=== PATIENT | female | born 1990 | race Caucasian/White ===

== ENCOUNTER → 2016-11-18 | Outpatient (CLI) | payer OTHER ==
--- NOTE | 2016-11-18 15:43 | US ---
EXAMINATION TYPE: US thyroid st tissue head/neck DATE OF EXAM: 11/18/2016 3:23 PM COMPARISON: IN PACS CLINICAL HISTORY: E04.1 thyroid nodule. F/U previous GLAND SIZE: Right Lobe: 4.5 x 1.4 x 1.9 cm Overall Parenchyma: homogenous Left Lobe: 4.4 x 1.0 x 1.4 cm Overall Parenchyma: homogeneous Isthmus Thickness: 0.2 cm NODULES RIGHT: # of nodules measured on right: 1 1. 0.9 X 0.8 x 1.1 cm hypoechoic solid nodule at the mid pole with irregular margins; present with microcalcifications. This nodule is wider than tall and shows intranodular vascularity. Prior size: 0.7 x 0.6 x 0.5 cm 0 LEFT: # of nodules measured on left: 0 ISTHMUS: # of nodules measured in the isthmus: 0 TECHNOLOGIST IMPRESSION: Bilateral neck scanned, no abnormal lymphadenopathy noted/ Irregular nodule right lobe increased in size from previous IMPRESSION: 1. Enlargement of a thyroid nodule within the right lobe thyroid.
== END ==
LOC: RADUSWWP 15:13
PROVIDERS: ATTEND Family Medicine
DX: E04.1 Nontoxic single thyroid nodule (principal)
CPT/HCPCS: 76536

== ENCOUNTER 2016-12-01 12:28 | Day surgery (SDC) | payer OTHER ==
[2016-12-01 12:52] VITALS: RESP 14; TEMP 98.3
[2016-12-01 13:47] VITALS: BP 141/78; PULSE 73
--- NOTE | 2016-12-01 14:09 | US ---
ULTRASOUND GUIDED FNA THYROID BIOPSY: CLINICAL HISTORY: 1.1 cm right thyroid nodule FINDINGS: The procedure was explained to the patient. The risks, complications, benefits and alternatives were discussed and any questions were answered. Informed consent was obtained. Patient was placed supin e on the ultrasound table and prepped and draped in the usual sterile fashion. Utilizing a 25 gauge needle, five passes were made into the requested right thyroid nodule. Patient was stable throughout the procedure. Pathology is pending. All elements of maximal barrier technique were utilized. IMPRESSION: 1. Successful ultrasound guided FNA thyroid biopsy.
== END 2016-12-01 13:47 | disposition home or self-care (01) ==
LOC: RADPROMAIN 12:28
PROVIDERS: ATTEND Family Medicine
DX: E04.1 Nontoxic single thyroid nodule (principal)
CPT/HCPCS: 10022; 76942; 88173; 88305

== ENCOUNTER 2018-02-17 21:49 | Emergency (ER) | payer OTHER ==
[2018-02-17 22:05] VITALS: TEMP 98.9
[2018-02-17] MEDS ORDERED: SODIUM CHLORIDE 0.9% 1,000 ML IV STA (22:26)
[2018-02-17] MEDS ORDERED: METOCLOPRAMIDE 5 MG/ML 2 ML VIAL IVP STA (22:27)
[2018-02-17] MEDS ORDERED: diphenhydrAMINE 50 MG/ML 1 ML VIAL IVP STA (22:27)
--- NOTE | 2018-02-17 22:41 | ED ---
General Adult HPI - General Chief complaint: Fever Stated complaint: Fever/Headache /Neck pain Time Seen by Provider: 02/17/18 22:07 Source: patient Mode of arrival: ambulatory Limitations: no limitations - History of Present Illness Initial comments: Karla is a 27-year-old female with past medical history of chronic headaches who presents to the emergency department today for evaluation of headache and low-grade fever. The patient reports that last week she developed a sore throat and a cough as well as a fever. She states that she did have some vomiting last week. She states that she attempted to take her home Fioricet with no relief of her headache. She saw her primary care physician was evaluated for strep which was negative as well as mono which was negative. She states that on Wednesday she had a fever of 101F. She saw her primary care on Wednesday and he advised her to continue supportive care but that if she had any worsening headache or persistent fevers to be evaluated in the emergency department for possible meningitis. The patient reports that for the remainder of the week she has had temperatures in the 99 range, nothing over 100.3F Patient does complain of some nasal congestion, pressure in her sinuses as well as a persistent nonproductive cough and sore throat. She states that she has been told she has seasonal ALLERGIES in the past but is uncertain what triggers her ALLERGIES. Patient describes her headache as an all over pressure-like headache. She states that it's worse when she bends over to tie her shoes. - Related Data Home Medications Medication Instructions Recorded Confirmed Butalb/Asprin/Caff 50-325-40Mg 1 cap PO TID PRN 02/17/18 02/17/18 [Fiorinal 50-325-40 MG] Ergocalciferol [Vitamin D2] 50,000 unit PO TH 02/17/18 02/17/18 Levothyroxine Sodium [Synthroid] 175 mcg PO DAILY 02/17/18 02/17/18 Previous Rx's Medication Instructions Recorded Fluticasone Nasal [place] [Flonase 2 spr EA NOSTRIL DAILY #1 bottle 02/18/18 Nasal [place]] Loratadine [Claritin] 10 mg PO DAILY #30 tab 02/18/18 Allergies Allergy/AdvReac Type Severity Reaction Status Date / Time codeine Allergy Unknown Verified 02/17/18 22:13 Childhood hydromorphone [From Dilaudid] AdvReac Nausea & Verified 02/17/18 22:13 Vomiting Review of Systems ROS Statement: Those systems with pertinent positive or pertinent negative responses have been documented in the HPI. ROS Other: All systems not noted in ROS Statement are negative. Constitutional: Reports: fever Eyes: Denies: vision change ENT: Reports: ear pain, throat pain Respiratory: Reports: cough. Denies: dyspnea, wheezes Cardiovascular: Denies: chest pain, palpitations, dyspnea on exertion, orthopnea Endocrine: Reports: fatigue Gastrointestinal: Denies: abdominal pain Genitourinary: Denies: urgency, dysuria Musculoskeletal: Denies: back pain Skin: Denies: rash Neurological: Reports: headache. Denies: weakness, numbness, paresthesias, confusion Psychiatric: Denies: anxiety, depression Hematological/Lymphatic: Denies: easy bleeding, easy bruising Past Medical History Past Medical History: Thyroid Disorder Additional Past Medical History / Comment(s): thyroid ca History of Any Multi-Drug Resistant Organisms: None Reported Past Surgical History: Section Additional Past Surgical History / Comment(s): thyroidectomy Past Anesthesia/Blood Transfusion Reactions: No Reported Reaction Past Psychological History: No Psychological Hx Reported Smoking Status: Never smoker Past Alcohol Use History: None Reported Past Drug Use History: None Reported - Past Family History Father Family Medical History: Hypertension, Myocardial Infarction ([place]) General Exam Limitations: no limitations General appearance: alert, in no apparent distress Head exam: Present: atraumatic, normocephalic Eye exam: Present: normal appearance, PERRL, EOMI ENT exam: Present: normal exam, normal oropharynx, mucous membranes moist, TM's normal bilaterally (fluid behind TM bilaterally), other (Tenderness to palpation of bilateral frontal and maxillary sinuses, noted to have significant postnasal drip) Neck exam: Present: other (well healing surgical scar consistent with history of thyroidectomy). Absent: meningismus, lymphadenopathy Respiratory exam: Present: normal lung sounds bilaterally, respiratory distress Cardiovascular Exam: Present: regular rate, normal rhythm GI/Abdominal exam: Present: soft. Absent: distended Rectal exam: Present: deferred Extremities exam: Present: normal inspection, full ROM Back exam: Present: normal inspection Neurological exam: Present: alert, oriented X3, CN II-XII intact, normal gait. Absent: altered Skin exam: Present: warm, dry. Absent: rash Course Vital Signs 02/17/18 02/18/18 21:58 00:46 Temperature 98.9 F Pulse Rate 78 101 H Respiratory 18 16 Rate Blood Pressure 151/93 128/84 O2 Sat by Pulse 98 99 Oximetry Medical Decision Making - Medical Decision Making The patient was seen and evaluated, history was obtained from the patient. Patient had apparent illness last week with fevers, sore throat, vomiting. Last fever was on Wednesday, was 101 Fahrenheit Patient was evaluated by her primary care physician, was strep and mono negative , was advised to seek care in the ER for any persistent symptoms. Patient reports that she feels better throughout the day but has worsening headaches at night as well as low-grade fevers which she describes as being 99F. Physical exam reveals no meningismus, patient is able to turn the head easily without apparent pain. She does report worsening pressure and pain in her head when she bends down to touch her toes. She does have physical exam findings consistent with acute sinusitis. Patient is cheerful and laughing with the examiner. I discussed with the patient for CT and lumbar puncture versus conservative management with treatment of her headache and reevaluation. At this time patient is agreeable to plan for conservative management. Patient re-evaluated, patient has friends at bedside, she is sitting up in bed talking and socializing. She reports improvement in her headache, still feels mild pressure-like sensation in her forehead and face region. I again reiterated I suspect she has some degree of sinusitis. Absent reveal mild leukocytosis with a white blood cell count of 11.4, no neutrophilia or bandemia. These results were discussed with the patient. I discussed with the patient further workup for headache. I advised the patient that a thorough workup of the headache will include a lumbar puncture. However considering the duration of her headache, the minimum symptoms at present, she has been afebrile for 4 days and is feeling well at this time therefore the patient would like to decline a lumbar puncture or head CT. Patient is comfortable with the plan for discharge home. She does have a good relationship with her primary care physician and can have close follow-up. I advised the patient that should she develop any fevers, worsening headache or any new or concerning symptoms she should return to the emergency department immediately for reevaluation. All questions pertaining to care were answered to the best my ability the patient was discharged home in stable condition with prescriptions for Claritin and Flonase for treatment of acute sinusitis. - Lab Data Result diagrams: 02/17/18 22:59 02/17/18 22:59 Lab Results 02/17/18 02/17/18 02/17/18 Range/Units 22:59 22:59 22:59 WBC 11.4 H (3.8-10.6) k/uL RBC 4.75 (3.80-5.40) m/uL Hgb 13.0 (11.4-16.0) gm/dL Hct 39.2 (34.0-46.0) % MCV 82.5 (80.0-100.0) fL MCH 27.4 (25.0-35.0) pg MCHC 33.2 (31.0-37.0) g/dL RDW 13.7 (11.5-15.5) % Plt Count 373 (150-450) k/uL Neutrophils % 65 % Lymphocytes % 26 % Monocytes % 5 % Eosinophils % 2 % Basophils % 0 % Neutrophils # 7.5 (1.3-7.7) k/uL Lymphocytes # 3.0 (1.0-4.8) k/uL Monocytes # 0.5 (0-1.0) k/uL Eosinophils # 0.2 (0-0.7) k/uL Basophils # 0.0 (0-0.2) k/uL Sodium 143 (137-145) mmol/L Potassium 4.2 (3.5-5.1) mmol/L Chloride 103 (98-107) mmol/L Carbon Dioxide 24 (22-30) mmol/L Anion Gap 16 mmol/L BUN 10 (7-17) mg/dL Creatinine 0.60 (0.52-1.04) mg/dL Est GFR (CKD-EPI)AfAm >90 (>60 ml/min/1.73 sqM) Est GFR (CKD-EPI)NonAf >90 (>60 ml/min/1.73 sqM) Glucose 116 H (74-99) mg/dL Calcium 9.8 (8.4-10.2) mg/dL Total Bilirubin 0.5 (0.2-1.3) mg/dL AST 26 (14-36) U/L ALT 20 (9-52) U/L Alkaline Phosphatase 77 (38-126) U/L Total Protein 7.4 (6.3-8.2) g/dL Albumin 4.1 (3.5-5.0) g/dL Urine Color Urine Appearance (Clear) Urine pH (5.0-8.0) Ur Specific [place] (1.001-1.035) Urine Protein (Negative) Urine Glucose (UA) (Negative) Urine Ketones (Negative) Urine Blood (Negative) Urine Nitrite (Negative) Urine Bilirubin (Negative) Urine Urobilinogen (<2.0) mg/dL Ur Leukocyte Esterase (Negative) Urine RBC (0-5) /hpf Urine WBC (0-5) /hpf Ur Squamous Epith Cells (0-4) /hpf Urine Mucus (None) /hpf Urine HCG, Qual Not Detected (Not Detectd) 02/17/18 Range/Units 22:59 WBC (3.8-10.6) k/uL RBC (3.80-5.40) m/uL Hgb (11.4-16.0) gm/dL Hct (34.0-46.0) % MCV (80.0-100.0) fL MCH (25.0-35.0) pg MCHC (31.0-37.0) g/dL RDW (11.5-15.5) % Plt Count (150-450) k/uL Neutrophils % % Lymphocytes % % Monocytes % % Eosinophils % % Basophils % % Neutrophils # (1.3-7.7) k/uL Lymphocytes # (1.0-4.8) k/uL Monocytes # (0-1.0) k/uL Eosinophils # (0-0.7) k/uL Basophils # (0-0.2) k/uL Sodium (137-145) mmol/L Potassium (3.5-5.1) mmol/L Chloride (98-107) mmol/L Carbon Dioxide (22-30) mmol/L Anion Gap mmol/L BUN (7-17) mg/dL Creatinine (0.52-1.04) mg/dL Est GFR (CKD-EPI)AfAm (>60 ml/min/1.73 sqM) Est GFR (CKD-EPI)NonAf (>60 ml/min/1.73 sqM) Glucose (74-99) mg/dL Calcium (8.4-10.2) mg/dL Total Bilirubin (0.2-1.3) mg/dL AST (14-36) U/L ALT (9-52) U/L Alkaline Phosphatase (38-126) U/L Total Protein (6.3-8.2) g/dL Albumin (3.5-5.0) g/dL Urine Color Yellow Urine Appearance Cloudy H (Clear) Urine pH 5.5 (5.0-8.0) Ur Specific [place] 1.020 (1.001-1.035) Urine Protein Negative (Negative) Urine Glucose (UA) Negative (Negative) Urine Ketones Negative (Negative) Urine Blood Trace H (Negative) Urine Nitrite Negative (Negative) Urine Bilirubin Negative (Negative) Urine Urobilinogen <2.0 (<2.0) mg/dL Ur Leukocyte Esterase Small H (Negative) Urine RBC 1 (0-5) /hpf Urine WBC 3 (0-5) /hpf Ur Squamous Epith Cells 8 H (0-4) /hpf Urine Mucus Rare H (None) /hpf Urine HCG, Qual (Not Detectd) Disposition Clinical Impression: Viral infection Disposition: HOME SELF-CARE Condition: Good Instructions: Sinusitis (ED) Prescriptions: Fluticasone Nasal [place] [Flonase Nasal [place]] 2 spr EA NOSTRIL DAILY #1 bottle Loratadine [Claritin] 10 mg PO DAILY #30 tab Is patient prescribed a controlled substance at d/c from ED?: No Referrals: Ramiro Bradley DO [Primary Care Provider] - 1-2 days Time of Disposition: 00:29
[2018-02-17 23:11] LABS: Basophils % (A) 0 %; Eosinophils # (A) 0.2 k/uL (0-0.7); Eosinophils % (A) 2 %; HCT 39.2 % (34.0-46.0); Lymphocytes % (A) 26 %; MCH 27.4 pg (25.0-35.0); MCHC 33.2 g/dL (31.0-37.0); MCV 82.5 fL (80.0-100.0); Mean Platelet Volume 6.9; Monocytes # (A) 0.5 k/uL (0-1.0); Monocytes % (A) 5 %; Neutrophils # (A) 7.5 k/uL (1.3-7.7); Neutrophils % (A) 65 %; Platelet Count 373 k/uL (150-450); RBC 4.75 m/uL (3.80-5.40); RDW 13.7 % (11.5-15.5); WBC 11.4 k/uL (3.8-10.6)
[2018-02-17 23:13] LABS: Appearance,Urine Cloudy (Clear); Bilirubin,Urine Negative (Negative); Blood,Urine Trace (Negative); Color,Urine Yellow; Glucose,Urine (UA) Negative (Negative); Ketones,Urine Negative (Negative); Leukocyte Esterase,Urine Small (Negative); Mucus,Urine Rare /hpf; Nitrite,Urine Negative (Negative); PH, Urine 5.5 (5.0-8.0); Protein,Urine Negative (Negative); RBC,Urine 1 /hpf (0-5); Squamous Epithelial Cell,Urine 8 /hpf (0-4); Urobilinogen,Urine <2.0 mg/dL (<2.0); WBC,Urine 3 /hpf (0-5)
[2018-02-17 23:57] LABS: ALT 20 U/L (9-52); AST 26 U/L (14-36); Albumin 4.1 g/dL (3.5-5.0); Alkaline Phosphatase 77 U/L (38-126); Anion Gap 16 mmol/L; Blood Urea Nitrogen 10 mg/dL (7-17); Calcium 9.8 mg/dL (8.4-10.2); Carbon Dioxide 24 mmol/L (22-30); Chloride 103 mmol/L (98-107); Glucose 116 mg/dL (74-99); Potassium 4.2 mmol/L (3.5-5.1); Sodium 143 mmol/L (137-145); Total Bilirubin 0.5 mg/dL (0.2-1.3); Total Protein 7.4 g/dL (6.3-8.2)
[2018-02-18 00:53] VITALS: BP 128/84; PULSE 101; RESP 16
== END 2018-02-18 00:52 | disposition home or self-care (01) ==
LOC: EC 21:49
DX: B34.9 Viral infection, unspecified (principal); E07.9 Disorder of thyroid, unspecified; Z85.850 Personal history of malignant neoplasm of thyroid; Z79.899 Other long term (current) drug therapy; Z88.5 Allergy status to narcotic agent; Z98.890 Other specified postprocedural states
CPT/HCPCS: 36415; 80053; 85025; 81001; 81025; 99283; 96374; 96375; J1200; J2765

== ENCOUNTER → 2024-03-31 | Outpatient (CLI) | payer OTHER ==
--- NOTE | 2024-03-31 18:53 | CT ---
EXAMINATION TYPE: CT abdomen pelvis w con CT DLP: 1881.7 mGycm, Automated exposure control for dose reduction was used. DATE OF EXAM: 03/31/2024 6:44 PM COMPARISON: 06/25/2023 CLINICAL INDICATION:Female, 33 years old with history of R10.2 ACUTE ABDOMEN R10.30 LOWER ABDOMINAL P AIN, U; low abd pain/ ovarian cyst TECHNIQUE: Axial CT abdomen pelvis w con;Sagittal and coronal reformats were created on a separate w orkstation. Contrast used:100 mL of Isovue 300 with IV Contrast, (none if empty) Oral contrast used: with Oral Contrast (none if empty) FINDINGS: LOWER CHEST: Unremarkable ABDOMEN LIVER: Unremarkable GALLBLADDER AND BILE DUCTS: Unremarkable. PANCREAS: Unremarkable. SPLEEN: Unremarkable. ADRENAL GLANDS: Unremarkable. KIDNEYS AND URETERS: No evidence of hydronephrosis or renal calculus. The ureters are unremarkable. PELVIS BLADDER: Unremarkable REPRODUCTIVE: No ovarian cysts identified. Dominant follicles in the right measuring up to 14 mm. ABDOMEN & PELVIS STOMACH AND BOWEL: No evidence of bowel obstruction. PERITONEUM/RETROPERITONEUM: No evidence of pneumoperitoneum or free fluid. VASCULATURE: No evidence of aortic aneurysm. MUSCULOSKELETAL: No acute osseous abnormalities LYMPH NODES: No gross evidence for lymphadenopathy. SOFT TISSUE/ABDOMINAL WALL: Tiny fat-containing umbilical hernia. IMPRESSION: 1. Dominant right ovarian follicle measuring 14 mm. 2. No acute abdominal process.
== END | disposition home or self-care (01) ==
LOC: RADCTMAIN 16:05 → MERGE 17:30
PROVIDERS: ATTEND Family Medicine
DX: R10.2 Pelvic and perineal pain (principal); R10.30 Lower abdominal pain, unspecified
CPT/HCPCS: 74177; Q9967

== ENCOUNTER 2024-06-06 07:54 | Emergency (ER) | payer OTHER ==
[2024-06-06 07:58] VITALS: RESP 16
--- NOTE | 2024-06-06 08:09 | ED ---
Nausea/Vomiting/Diarrhea HPI - General Chief complaint: Nausea/Vomiting/Diarrhea Stated complaint: NV,8wks preg Time Seen by Provider: 06/06/24 08:08 Source: patient, RN notes reviewed Mode of arrival: ambulatory Limitations: no limitations - History of Present Illness Initial comments: 33-year-old female presenting to the ER with a chief complaint of nausea and vomiting. Patient is approximately 8 weeks gestation. Patient was sent by Dr. Cuba for IV fluids due to morning sickness. Patient also is reporting lower abdominal cramping. Denies any vaginal bleeding or discharge. No fevers or chills. Patient reports she has not had an ultrasound for this . Patient states she was able to consume applesauce with her and S ynthroid this morning with success. - Related Data Home Medications Medication Instructions Recorded Confirmed Butalb/Asprin/Caff 50-325-40Mg 1 cap PO TID PRN 02/17/18 02/17/18 [Fiorinal 50-325-40 MG] Ergocalciferol [Vitamin D2] 50,000 unit PO TH 02/17/18 02/17/18 Levothyroxine Sodium [Synthroid] 175 mcg PO DAILY 02/17/18 02/17/18 Previous Rx's Medication Instructions Recorded Fluticasone Nasal [place] [Flonase 2 spr EA NOSTRIL DAILY #1 bottle 02/18/18 Nasal [place]] Loratadine [Claritin] 10 mg PO DAILY #30 tab 02/18/18 Ondansetron Odt [Zofran Odt] 4 mg PO Q8HR PRN #10 tab 06/06/24 Allergies Allergy/AdvReac Type Severity Reaction Status Date / Time codeine Allergy Unknown Verified 06/06/24 07:58 Childhood morphine Allergy Unknown Verified 06/06/24 07:58 hydromorphone [From Dilaudid] AdvReac Nausea & Verified 06/06/24 07:58 Vomiting Review of Systems ROS Statement: Those systems with pertinent positive or pertinent negative responses have been documented in the HPI. ROS Other: All systems not noted in ROS Statement are negative. Past Medical History Past Medical History: Cancer, Thyroid Disorder Additional Past Medical History / Comment(s): thyroid ca History of Any Multi-Drug Resistant Organisms: None Reported Past Surgical History: Section Additional Past Surgical History / Comment(s): thyroidectomy Past Anesthesia/Blood Transfusion Reactions: No Reported Reaction Past Psychological History: No Psychological Hx Reported Smoking Status: Former smoker Past Alcohol Use History: None Reported Past Drug Use History: None Reported - Past Family History Father Family Medical History: Hypertension, Myocardial Infarction ([place]) General Exam - General Exam Comments Initial Comments: Visual Physical Exam Vital signs reviewed General: Well-appearing, nontoxic, no acute distress. Head: Normocephalic, atraumatic Eyes: PERRLA, EOMI ENT: Airway patent Chest: Nonlabored breathing Skin: No visual rash, normal skin tone Neuro: Alert and oriented 3 Musculoskeletal: No gross abnormalities Limitations: no limitations General appearance: alert, in no apparent distress Respiratory exam: Present: normal lung sounds bilaterally. Absent: respiratory distress, wheezes, rales, rhonchi, stridor Cardiovascular Exam: Present: regular rate, normal rhythm, normal heart sounds. Absent: systolic murmur, diastolic murmur, rubs, gallop, clicks GI/Abdominal exam: Present: soft, tenderness (lower abdominal pain), normal bowel sounds. Absent: distended, guarding, rebound, rigid Neurological exam: Present: alert, oriented X3, CN II-XII intact Skin exam: Present: warm, dry, intact, normal color. Absent: rash Course Vital Signs 06/06/24 06/06/24 07:56 11:26 Temperature 97.8 F 97.9 F Pulse Rate 88 85 Respiratory 16 16 Rate Blood Pressure 123/83 125/77 O2 Sat by Pulse 99 99 Oximetry Medical Decision Making - Medical Decision Making I performed the quick note portion of this chart. Electronically signed by Jorge Gonsales PA-C Was pt. sent in by a medical professional or institution ([facility], [employer], urgent care, hospital, or halfway...) When possible be specific @ -Patient sent by Dr. Cuba for evaluation of nausea and vomiting. Did you speak to anyone other than the patient for history (EMS, parent, family, police, friend...)? What history was obtained from this source @ -No Did you review nursing and triage notes (agree or disagree)? Why? @ -I reviewed and agree with nursing and triage notes Were old charts reviewed (outside hosp., previous admission, EMS record, old EKG, old radiological studies, urgent care reports/EKG's, halfway records)? Report findings @ -No old charts were reviewed Differential Diagnosis (chest pain, altered mental status, abdominal pain women, abdominal pain men, vaginal bleeding, weakness, fever, dyspnea, syncope, headache, dizziness, GI bleed, back pain, seizure, CVA, palpatations, mental health, musculoskeletal)? @ -Differential Abdominal Pain Women:Appendicitis, Cholecystitis, diverticulosis, ischemic bowel, pancreatitis, hepatitis, UTI, gastroenteritis, AAA, incarcerated hernia, bowel obstruction, constipation, inflammatory bowel, hepatitis, peptic ulcer disease, splenic infarction, perforated viscus, vulvitis, ovarian torsion, PID, kidney stone, placenta abruption, this is not meant to be an all-inclusive list EKG interpreted by me (3pts min.). @ -None done X-rays interpreted by me (1pt min.). @ -None done CT interpreted by me (1pt min.). @ -None done U/S interpreted by me (1pt. min.). @ - ultrasound showing a single IUP gestational age of 8 weeks 1 day. Cardiac activity measuring 156 bpm. What testing was considered but not performed or refused? (CT, X-rays, U/S, labs)? Why? @ -None What meds were considered but not given or refused? Why? @ -None Did you discuss the management of the patient with other professionals (professionals i.e. , PA, [employer]DER, lab, RT, psych nurse, hospital social worker, transit department clerk, teacher, command center officer, welfare case worker)? Give summary @ -No Was smoking cessation discussed for >3mins.? @ -No Was critical care preformed (if so, how long)? @ -No Were there social determinants of health that impacted care today? How? (Homelessness, low income, unemployed, alcoholism, drug addiction, transportation, low edu. Level, literacy, decrease access to med. care, senior living, rehab)? @ -No Was there de-escalation of care discussed even if they declined (Discuss DNR or withdrawal of care, Hospice)? DNR status @ -No What co-morbidities impacted this encounter? (DM, HTN, Smoking, COPD, CAD, Cancer, CVA, ARF, Chemo, Hep., AIDS, mental health diagnosis, sleep apnea, morbid obesity)? @ - Was patient admitted / discharged? Hospital course, mention meds given and route, prescriptions, significant lab abnormalities, going to OR and other pertinent info. @ -Discharge. 33-year-old female presented to the ER with a chief complaint of nausea and vomiting. Patient is approximately 8 weeks gestation. History and physical exam completed. Vitals within normal limits. Patient in no signs of acute distress and nontoxic-appearing. Laboratory studies obtained unremarkable. Serum hCG 85,632. Urinalysis contaminated with 6 epithelial cells. Ultrasound obtained as patient reports she has not had an ultrasound for this confirming IUP. ultrasound showing a single IUP gestational age 8 weeks 1 day with cardiac activity at 156 bpm. Patient's blood type is A- but patient is denying any current vaginal bleeding. RhoGAM not indicated. Patient received IV fluids, Zofran, pyridoxine and Tylenol for symptom control in the ER. Upon reevaluation, patient resting comfortably in exam room in no signs of acute distress. Results discussed with patient, all questions answered. Zofran prescribed. Advise close follow-up with Dr. Cuba as scheduled. Strict return parameters discussed. Patient discharged in stable condition. Patient verbally expressed understanding agree with care plan. Case discussed with ED attending, Dr. Carrero. Undiagnosed new problem with uncertain prognosis? @ -No Drug Therapy requiring intensive monitoring for toxicity (Heparin, Nitro, Insulin, Cardizem)? @ -No Were any procedures done? @ -No Diagnosis/symptom? @ -Nausea and vomiting in Acute, or Chronic, or Acute on Chronic? @ -Acute Uncomplicated (without systemic symptoms) or Complicated (systemic symptoms)? @ -Uncomplicated Side effects of treatment? @ -No Exacerbation, Progression, or Severe Exacerbation? @ -No Poses a threat to life or bodily function? How? (Chest pain, [place], [place], pneumonia, PE, COPD, DKA, ARF, appy, cholecystitis, CVA, Diverticulitis, Homicidal, Suicidal, threat to staff... and all critical care pts) @ -No - Lab Data Result diagrams: 06/06/24 08:49 06/06/24 08:49 Lab Results 06/06/24 06/06/24 06/06/24 Range/Units 08:49 08:49 08:49 WBC 8.9 (3.8-10.6) k/uL RBC 4.42 (3.80-5.40) m/uL Hgb 12.3 (11.4-16.0) gm/dL Hct 37.4 (34.0-46.0) % MCV 84.6 (80.0-100.0) fL MCH 27.9 (25.0-35.0) pg MCHC 32.9 (31.0-37.0) g/dL RDW 14.6 (11.5-15.5) % Plt Count 311 (150-450) k/uL MPV 7.6 Neutrophils % 75 % Lymphocytes % 18 % Monocytes % 4 % Eosinophils % 1 % Basophils % 0 % Neutrophils # 6.7 (1.3-7.7) k/uL Lymphocytes # 1.6 (1.0-4.8) k/uL Monocytes # 0.3 (0-1.0) k/uL Eosinophils # 0.1 (0-0.7) k/uL Basophils # 0.0 (0-0.2) k/uL Sodium 136 L (137-145) mmol/L Potassium 4.1 (3.5-5.1) mmol/L Chloride 105 (98-107) mmol/L Carbon Dioxide 22 (22-30) mmol/L Anion Gap 9 mmol/L BUN 8 (7-17) mg/dL Creatinine 0.48 L (0.52-1.04) mg/dL Est GFR (CKD-EPI)AfAm >90 (>60 ml/min/1.73 sqM) Est GFR (CKD-EPI)NonAf >90 (>60 ml/min/1.73 sqM) Glucose 82 (74-99) mg/dL Calcium 8.9 (8.4-10.2) mg/dL Total Bilirubin 0.9 (0.2-1.3) mg/dL AST 19 (14-36) U/L ALT 11 (4-34) U/L Alkaline Phosphatase 56 (38-126) U/L Total Protein 6.9 (6.3-8.2) g/dL Albumin 3.9 (3.5-5.0) g/dL HCG, Quant 58825.5 mIU/mL Urine Color Colorless Urine Appearance Clear (Clear) Urine pH 7.0 (5.0-8.0) Ur Specific [place] 1.008 (1.001-1.035) Urine Protein Negative (Negative) Urine Glucose (UA) Negative (Negative) Urine Ketones Negative (Negative) Urine Blood Negative (Negative) Urine Nitrite Negative (Negative) Urine Bilirubin Negative (Negative) Urine Urobilinogen <2.0 (<2.0) mg/dL Ur Leukocyte Esterase Trace H (Negative) Urine RBC 1 (0-5) /hpf Urine WBC 5 (0-5) /hpf Ur Squamous Epith Cells 6 H (0-4) /hpf Urine Bacteria Rare H (None) /hpf Urine Mucus Rare H (None) /hpf - Radiology Data Radiology results: report reviewed, image reviewed Disposition Clinical Impression: Nausea and vomiting during Disposition: HOME SELF-CARE Condition: Stable Instructions (If sedation given, give patient instructions): Acute Nausea and Vomiting (ED) Additional Instructions: Follow-up with Dr. Cuba as scheduled. Return to the ER for any new or worsening concerns. Prescriptions: Ondansetron Odt [Zofran Odt] 4 mg PO Q8HR PRN #10 tab PRN Reason: Nausea Is patient prescribed a controlled substance at d/c from ED?: No Referrals: Ramiro Bradley DO [Primary Care Provider] - 1-2 days Time of Disposition: 11:03
[2024-06-06] MEDS: SODIUM CHLORIDE 0.9% 1,000 ML IV STA (09:08)
[2024-06-06] MEDS: ONDANSETRON 4 MG/2 ML VIAL IVP STA (09:09)
[2024-06-06 09:13] LABS: Basophils % (A) 0 %; Eosinophils # (A) 0.1 k/uL (0-0.7); Eosinophils % (A) 1 %; HCT 37.4 % (34.0-46.0); HGB 12.3 gm/dL (11.4-16.0); Lymphocytes # (A) 1.6 k/uL (1.0-4.8); Lymphocytes % (A) 18 %; MCH 27.9 pg (25.0-35.0); MCHC 32.9 g/dL (31.0-37.0); MCV 84.6 fL (80.0-100.0); Mean Platelet Volume 7.6; Monocytes # (A) 0.3 k/uL (0-1.0); Monocytes % (A) 4 %; Neutrophils # (A) 6.7 k/uL (1.3-7.7); Neutrophils % (A) 75 %; Platelet Count 311 k/uL (150-450); RBC 4.42 m/uL (3.80-5.40); RDW 14.6 % (11.5-15.5); WBC 8.9 k/uL (3.8-10.6)
[2024-06-06 09:22] LABS: Appearance,Urine Clear (Clear); Bacteria,Urine Rare /hpf; Bilirubin,Urine Negative (Negative); Blood,Urine Negative (Negative); Color,Urine Colorless; Glucose,Urine (UA) Negative (Negative); Ketones,Urine Negative (Negative); Leukocyte Esterase,Urine Trace (Negative); Mucus,Urine Rare /hpf; Nitrite,Urine Negative (Negative); Protein,Urine Negative (Negative); RBC,Urine 1 /hpf (0-5); Specific Gravity,Urine 1.008 (1.001-1.035); Squamous Epithelial Cell,Urine 6 /hpf (0-4); Urobilinogen,Urine <2.0 mg/dL (<2.0); WBC,Urine 5 /hpf (0-5)
[2024-06-06 09:44] LABS: ALT 11 U/L (4-34); AST 19 U/L (14-36); African American GFR (CKD) >90 (>60 ml/min/1.73 sqM); Albumin 3.9 g/dL (3.5-5.0); Alkaline Phosphatase 56 U/L (38-126); Anion Gap 9 mmol/L; Blood Urea Nitrogen 8 mg/dL (7-17); Calcium 8.9 mg/dL (8.4-10.2); Carbon Dioxide 22 mmol/L (22-30); Chloride 105 mmol/L (98-107); Glucose 82 mg/dL (74-99); Non-African American GFR(CKD) >90 (>60 ml/min/1.73 sqM); Potassium 4.1 mmol/L (3.5-5.1); Sodium 136 mmol/L (137-145); Total Bilirubin 0.9 mg/dL (0.2-1.3); Total Protein 6.9 g/dL (6.3-8.2)
--- NOTE | 2024-06-06 10:27 | US ---
EXAMINATION TYPE: Transabdominal DATE OF EXAM: 06/06/2024 9:29 AM COMPARISON: NONE CLINICAL INDICATION: Female, 33 years old with history of abd cramping about 8 weeks preg; 8 weeks pr egnant with morning sickness and slight cramping. . 1 EXAM PERFORMED: Transabdominal (TA) EXAM MEASUREMENTS: GESTATIONAL AGE / DATING Physician Established: Not yet established Dates by LMP: 04/04/24 (9 weeks/0 days) EDC: 01/09/25 Dates by First Scan: No previous this is first scan Dates by Current Scan for: (8 weeks/1 days) EDC: 01/15/25 MATERNAL ANATOMY Uterus: 9.3 x 6.3 x 5.5cm Right Ovary: 3.4 x 2.1 x 2.6cm Left Ovary: 3.6 x 2.5 x 2.0cm Post CDS / Adnexa: wnl Presence of free fluid: No Presence of corpus luteal cyst: Not seen. Right ovary slightly limited due to bowel gas Presence of subchorionic bleed: No GESTATION / SURVEY CRL: 1.67cm (8 weeks/1 days) MSD: wnl Yolk Sac (normal less than 6mm): 3.2mm Heart Rate: 156 bpm Rhythm: Normal IUP: Viable IUP Date of LMP: Pt states around 04/04/24 Beta HcG (if available): N/A Single live IUP seen measuring 8 weeks 1 day IMPRESSION: 1. Single intrauterine gestation estimated at 8 weeks 1 day gestation based on crown-rump length. Car diac activity measures 156 bpm was observed during the study [facility]ga, , 06/06/2024 10:24 AM
[2024-06-06 10:34] LABS: HCG,Quantitative Serum 85632.5 mIU/mL
[2024-06-06] MEDS: ACETAMINOPHEN TAB 325 MG TAB PO STA (11:01)
[2024-06-06] MEDS: PYRIDOXINE 100 MG/ML 1 ML VIAL IVP STA (11:17)
[2024-06-06 11:27] VITALS: BP 125/77; PULSE 85; TEMP 97.9
== END 2024-06-06 11:28 | disposition home or self-care (01) ==
LOC: EC 07:54
CPT/HCPCS: 36415; 76801; 80053; 81001; 84702; 85025; 96361; 96374; 96375; 99284

== ENCOUNTER 2024-12-12 10:17 | Inpatient (IN) | payer OTHER ==
[2024-12-12] MEDS: LACTATED RINGERS 1,000 ML IV SCH ×2 (10:45→13:15)
[2024-12-12] MEDS ORDERED: METHYLERGONOVINE 0.2 MG/ML 1 ML AMP IM PRN (10:53)
[2024-12-12] MEDS ORDERED: OXYTOCIN 10 UNIT/ML 1 ML VIAL IM PRN (10:53)
[2024-12-12] MEDS ORDERED: CARBOPROST TROMETHAMINE 250 MCG/ML 1 ML AMP IM PRN (10:53)
[2024-12-12] MEDS ORDERED: miSOPROStoL 200 MCG TAB PO PRN (10:53)
[2024-12-12] MEDS ORDERED: TRANEXAMIC 1,000 MG/100ML-NACL 1,000 MG in EMPTY BAG 1 BAG IV PRN (10:53)
[2024-12-12 11:18] LABS: Basophils % (A) 0 %; Eosinophils # (A) 0.1 k/uL (0-0.7); Eosinophils % (A) 1 %; HCT 35.8 % (34.0-46.0); HGB 11.6 gm/dL (11.4-16.0); Lymphocytes # (A) 1.3 k/uL (1.0-4.8); Lymphocytes % (A) 16 %; MCH 28.5 pg (25.0-35.0); MCHC 32.4 g/dL (31.0-37.0); Mean Platelet Volume 7.9; Monocytes # (A) 0.3 k/uL (0-1.0); Monocytes % (A) 4 %; Neutrophils # (A) 6.3 k/uL (1.3-7.7); Neutrophils % (A) 77 %; Platelet Count 265 k/uL (150-450); RBC 4.07 m/uL (3.80-5.40); RDW 15.1 % (11.5-15.5); WBC 8.2 k/uL (3.8-10.6)
[2024-12-12] MEDS: CITRIC ACID-SODIUM CITRATE 15 ML CUP PO ONE (11:50)
[2024-12-12] MEDS ORDERED: MORPHINE SULFATE (PF) 0.3 MG/0.3 ML SYR ONE (12:08)
[2024-12-12] MEDS ORDERED: KETOROLAC 15 MG/ML 1 ML VIAL ONE (12:08)
[2024-12-12] MEDS ORDERED: SUCCINYLCHOLINE CHLORIDE 200 MG/10 ML VIAL IV ONE (12:08)
[2024-12-12] MEDS ORDERED: ONDANSETRON 4 MG/2 ML VIAL ONE (12:08)
[2024-12-12] MEDS ORDERED: PROPOFOL 10 MG/ML 20 ML VIAL IV ONE (12:08)
[2024-12-12] MEDS ORDERED: NALOXONE 0.4 MG/ML 1 ML VIAL IV PRN (13:02)
[2024-12-12] MEDS ORDERED: HYDROmorphone PCA 10 MG/50 ML BAG IV PRN (13:02)
[2024-12-12] MEDS ORDERED: ZOLPIDEM 5 MG TAB PO PRN (13:02)
[2024-12-12] MEDS ORDERED: diphenhydrAMINE 50 MG/ML 1 ML VIAL IVP PRN ×2 (13:02)
[2024-12-12] MEDS ORDERED: METOCLOPRAMIDE 5 MG/ML 2 ML VIAL IVP PRN (13:02)
[2024-12-12] MEDS ORDERED: ONDANSETRON 4 MG/2 ML VIAL IVP PRN (13:02)
[2024-12-12] MEDS ORDERED: LANOLIN CREAM 1 GM TUBE TOPICAL PRN (13:02)
[2024-12-12] MEDS ORDERED: diphenhydrAMINE 50 MG CAP PO PRN (13:02)
[2024-12-12] MEDS ORDERED: diphenhydrAMINE 25 MG CAP PO PRN (13:02)
[2024-12-12] MEDS: ACETAMINOPHEN IV (For NPO) 1,000 MG in EMPTY BAG 1 BAG IVPB STA (14:02)
[2024-12-12] MEDS: KETOROLAC 15 MG/ML 1 ML VIAL IVP SCH (18:00)
[2024-12-12] MEDS: SENNOSIDES-DOCUSATE SODIUM 1 EACH TAB PO SCH (20:28)
[2024-12-12] MEDS: ACETAMINOPHEN TAB 500 MG TAB PO SCH (21:22)
[2024-12-13] MEDS: IBUPROFEN 800 MG TAB PO SCH (02:45)
[2024-12-13] MEDS: Rhogam IMMUNE GLOBULIN 1,500 UNIT/1 ML IM ONE ×3 (04:15)
[2024-12-13 06:34] LABS: Basophils % (A) 0 %; Eosinophils # (A) 0.1 k/uL (0-0.7); Eosinophils % (A) 1 %; HCT 32.3 % (34.0-46.0); HGB 10.4 gm/dL (11.4-16.0); Lymphocytes # (A) 1.4 k/uL (1.0-4.8); Lymphocytes % (A) 16 %; MCH 28.8 pg (25.0-35.0); MCHC 32.1 g/dL (31.0-37.0); MCV 89.8 fL (80.0-100.0); Mean Platelet Volume 8.5; Monocytes # (A) 0.4 k/uL (0-1.0); Monocytes % (A) 5 %; Neutrophils # (A) 6.6 k/uL (1.3-7.7); Neutrophils % (A) 77 %; Platelet Count 248 k/uL (150-450); RDW 15.5 % (11.5-15.5); WBC 8.6 k/uL (3.8-10.6)
--- NOTE | 2024-12-13 08:48 | P.PN ---
Progress Note - Text Adequate analgesia. No anesthetic complications.
--- NOTE | 2024-12-13 10:14 | P.PN ---
Progress Note - Text 12/13/24 646am 34-year-old female status post with spinal Duramorph. Patient seen and evaluated for postop pain control, she has a VAS of 5 with no complaint of nausea vomiting or pruritus.
[2024-12-13] MEDS ORDERED: ACETAMINOPHEN TAB 500 MG TAB PO SCH (17:00)
[2024-12-13] MEDS ORDERED: IBUPROFEN 800 MG TAB PO SCH (21:00)
--- NOTE | 2024-12-14 08:21 | P.DS ---
Providers Date of admission: 12/12/24 10:17 Expected date of discharge: 12/14/24 Attending physician: Esthela Cuba Primary care physician: Stated None - Discharge Diagnosis(es) (1) Status post repeat low transverse section Current Visit: Yes Status: Acute (2) Status post tubal ligation at time of delivery, current hosp Current Visit: Yes Status: Acute Hospital Course: Patient presented for repeat low-transverse and bilateral salpingectomy. She underwent this procedure without complication. Patient denies nausea, vomiting, chest pain, shortness of breath or calf pain. Baby had been transferred to [facility] and the patient will be discharged home on postoperative day #2 in stable condition to follow-up with me in 2 weeks. Plan - Discharge Summary New Discharge Prescriptions: New Acetaminophen Tab [Tylenol] 1,000 mg PO Q8H PRN 30 Days #60 tab PRN Reason: Pain Ibuprofen [Motrin] 800 mg PO Q8H PRN #30 tab PRN Reason: Pain No Action Levothyroxine Sodium [Synthroid] 150 mcg PO DAILY Ergocalciferol [Vitamin D2] 5,000 unit PO DAILY Doxylamine Succinate [Unisom] 1 capsule PO DAILY Pnv No.154/Iron Fum/Folic Acid [ Plus Vitamin Tablet] 1 tablet PO DAILY Aspirin [Adult Low Dose Aspirin EC] 1 tablet PO DAILY Cranberry Fruit Extract [Cranberry] 1 tablet PO DAILY Discharge Medication List Ergocalciferol [Vitamin D2] 5,000 unit PO DAILY 02/17/18 [History] Levothyroxine Sodium [Synthroid] 150 mcg PO DAILY 02/17/18 [History] Aspirin [Adult Low Dose Aspirin EC] 1 tablet PO DAILY 12/12/24 [History] Cranberry Fruit Extract [Cranberry] 1 tablet PO DAILY 12/12/24 [History] Doxylamine Succinate [Unisom] 1 capsule PO DAILY 12/12/24 [History] Pnv No.154/Iron Fum/Folic Acid [ Plus Vitamin Tablet] 1 tablet PO DAILY 12/12/24 [History] Acetaminophen Tab [Tylenol] 1,000 mg PO Q8H PRN 30 Days #60 tab 12/14/24 [Rx] Ibuprofen [Motrin] 800 mg PO Q8H PRN #30 tab 12/14/24 [Rx] Follow up Appointment(s)/Referral(s): Esthela Cuba DO [Doctor of Osteopathic Medicine] - 12/27/24 11:30 am (Post partam appt. January 23, 2025 @11:30AM) Discharge Disposition: HOME SELF-CARE
[2024-12-14 08:52] VITALS: BP 125/80; PULSE 89; RESP 14; TEMP 97.5
--- NOTE | 2025-02-26 09:49 | P.HPOB ---
History of Present Illness H&P Date: 12/12/24 Chief Complaint: repeat low transverse 34-year-old at 39 weeks presents for repeat low-transverse and bilateral salpingectomy. Review of Systems All systems: negative Constitutional: Denies chills, Denies fever Eyes: denies blurred vision, denies pain Ears, nose, mouth and throat: Denies headache, Denies sore throat Cardiovascular: Denies chest pain, Denies shortness of breath Respiratory: Denies cough Gastrointestinal: Denies abdominal pain, Denies diarrhea, Denies nausea, Denies vomiting Genitourinary: Denies dysuria, Denies hematuria Musculoskeletal: Denies myalgias Integumentary: Denies pruritus, Denies rash Neurological: Denies numbness, Denies weakness Psychiatric: Denies anxiety, Denies depression Endocrine: Denies fatigue, Denies weight change Past Medical History Past Medical History: Cancer, Thyroid Disorder Additional Past Medical History / Comment(s): thyroid ca History of Any Multi-Drug Resistant Organisms: None Reported Past Surgical History: Section Additional Past Surgical History / Comment(s): thyroidectomy Past Anesthesia/Blood Transfusion Reactions: No Reported Reaction Past Psychological History: No Psychological Hx Reported Smoking Status: Former smoker Past Alcohol Use History: None Reported Past Drug Use History: None Reported - Past Family History Father Family Medical History: Hypertension, Myocardial Infarction ([place]) Medications and Allergies Home Medications Medication Instructions Recorded Confirmed Type Ergocalciferol [Vitamin D2] 5,000 unit PO DAILY 02/17/18 12/12/24 History Levothyroxine Sodium [Synthroid] 150 mcg PO DAILY 02/17/18 12/12/24 History Aspirin [Adult Low Dose Aspirin EC] 1 tablet PO DAILY 12/12/24 12/12/24 History Cranberry Fruit Extract [Cranberry] 1 tablet PO DAILY 12/12/24 12/12/24 History Doxylamine Succinate [Unisom] 1 capsule PO DAILY 12/12/24 12/12/24 History Pnv No.154/Iron Fum/Folic Acid 1 tablet PO DAILY 12/12/24 12/12/24 History [ Plus Vitamin Tablet] Acetaminophen Tab [Tylenol] 1,000 mg PO Q8H PRN 30 Days #60 tab 12/14/24 Rx Ibuprofen [Motrin] 800 mg PO Q8H PRN #30 tab 12/14/24 Rx Allergies Allergy/AdvReac Type Severity Reaction Status Date / Time codeine Allergy Unknown Verified 12/12/24 10:37 Childhood hydromorphone [From Dilaudid] AdvReac Nausea & Verified 12/12/24 10:37 Vomiting Exam Osteopathic Statement: *. No significant issues noted on an osteopathic structural exam other than those noted in the History and Physical/Consult. Heart: Regular rate and rhythm Lungs: Clear to auscultation bilaterally Abdomen: Soft, nontender Extremities: Negative Homans sign Results Result Diagrams: 12/13/24 06:13 Assessment and Plan (1) Status post repeat low transverse section Status: Acute Code(s): Z98.891 - HISTORY OF UTERINE SCAR FROM PREVIOUS SURGERY SNOMED Code(s): 714088638 (2) Status post tubal ligation at time of delivery, current hosp Status: Acute Code(s): O80 - ENCOUNTER FOR FULL-TERM UNCOMPLICATED DELIVERY; Z30.2 - ENCOUNTER FOR STERILIZATION SNOMED Code(s): 33340961279676 Plan: Repeat low-transverse and bilateral salpingectomy
--- NOTE | 2025-02-26 09:52 | P.OP ---
Date of Procedure: 12/12/24 Preoperative Diagnosis: previous c-secton 39 week gestation family planning Postoperative Diagnosis: same Procedure(s) Performed: Repeat low-transverse with bilateral salpingectomy Anesthesia: spinal Surgeon: Esthela Cuba Mattress Weaver #1: Fransisca Lantigua Pathology: other (bilateral fallopian tubes) Condition: stable Disposition: floor Operative Findings: normal uterus, tubes and ovaries. Description of Procedure: Patient was taken to the operating room where spinal anesthesia was found be adequate. She was prepped and draped in normal sterile fashion in dorsal supine position with a leftward tilt. Pfannenstiel skin incision was made the scalpel and carried through to the underlying layer of fascia with the scalpel. Fascia was incised in midline and carried bilaterally with the Benoit scissors. The superior aspect of the fascial incision was grasped with [place] clamps elevated and the underlying rectus muscles dissected off with the Benoit's. Attention was then turned to inferior aspect of same incision which in a similar fashion was grasped tented up and the underlying rectus muscles dissected off with the Benoit's. The rectus muscles were the midline and the peritoneum was identified tented up and entered sharply with the scalpel. The incision was extended superiorly and inferiorly with good visualization of the bladder. The bladder blade was inserted and the vesicouterine peritoneum was incised the Metzenbaums then carried bilaterally and bladder flap created digitally. A low transverse incision was then made on the uterus with the scalpel. This was carried bilaterally and digital manner. Infant's head delivered atraumatically, nose and mouth bulb suctioned, cord clamped and cut, infant handed off to waiting nurses. Placenta delivered manually, intact with three-vessel cord. The uterus is exteriorized and cleared of all clots and debris. The uterine incision was closed with 0 Vicryl in a running locked fashion. Second layer of the same sutures used in imbricating fashion to obtain excellent hemostasis. Both ovaries and tubes appeared normal. The right fallopian tube was grasped with a [place] and the mesosalpinx was sealed and cut using the LigaSure. Right fallopian tube was easily removed. Left loping tube was grasped with V[place]la and the mesosalpinx was sealed and cut using the LigaSure. Both fallopian tubes sent to pathology. The uterus was placed back into the abdomen. The peritoneum was reapproximated using 2-0 Vicryl in a running fashion. The muscles were reapproximated using 2-0 Vicryl in interrupted fashion. The fascia was reapproximated using 0 Vicryl in a running fashion. The subcutaneous tissues closed with 3-0 Vicryl running fashion. The skin was closed rm. Patient tolerated the procedure well, sponge and instrument counts were correct times 2 and she was taken to the recovery room in stable condition.
== END 2024-12-14 17:13 | disposition home or self-care (01) | DRG 539 ==
LOC: 4FBP 10:17
PROVIDERS: ADMIT Obstetrics & Gynecology; ATTEND Obstetrics & Gynecology
PROC: 10D00Z1 Extraction of Products of Conception, Low, Open Approach (ICD-10-PCS; principal; 2024-12-12 12:00)
PROC: 0UB70ZZ Excision of Bilateral Fallopian Tubes, Open Approach (ICD-10-PCS; principal; 2024-12-12 12:00)
DX: O34.211 Maternal care for low transverse scar from previous cesarean delivery (principal); O99.284 Endocrine, nutritional and metabolic diseases complicating childbirth; E89.0 Postprocedural hypothyroidism; Z30.2 Encounter for sterilization; Z37.0 Single live birth; Z3A.39 39 weeks gestation of pregnancy; Z79.82 Long term (current) use of aspirin; Z88.5 Allergy status to narcotic agent; Z79.890 Hormone replacement therapy; Z82.49 Family history of ischemic heart disease and other diseases of the circulatory system; Z85.850 Personal history of malignant neoplasm of thyroid; Z87.891 Personal history of nicotine dependence
CPT/HCPCS: 85025; 85461; 86850; 86870; 86880; 86900; 86901; 88302